=== PATIENT | female | born 1940 | race Caucasian/White ===

== ENCOUNTER 2016-08-23 11:48 | Observation (INO) | payer MEDICARE, OTHER ==
[~2016-08-23] VITALS: Ht 162.6 cm; Wt 58.7 kg
[2016-08-23] VITALS (7 sets, daily range): BP systolic 118–170; BP diastolic 73–94; PULSE 72–85; RESP 16–20; TEMP 97.2–97.8; O2SAT 91–97
[~2016-08-23 11:48] MED LIST: ATOR10 PO; BENA25CA2 PO; FISH1000 PO; METO50CR PO; RIVA20 PO; TAB-TAB PO; WAL-10TA2 PO
[2016-08-23] MEDS ORDERED: GLUCTAB6 (12:08)
[2016-08-23] MEDS ORDERED: ASPI1TAB69 PO (12:08)
[2016-08-23] MEDS ORDERED: CO-QCAP (12:08)
[2016-08-23] MEDS ORDERED: CALC1TAB87 PO (12:08)
[2016-08-23] MEDS ORDERED: PANTOPRAZOLE SODIUM 40 MG VIAL IVP ONE (12:15)
[2016-08-23] MEDS ORDERED: SODIUM CHLORIDE 0.9% FLUSH 10 ML FLUSH IVF PRN (12:15)
[2016-08-23] MEDS ORDERED: ALUMINUM/MAGNESIUM/SIMETH 30 ML CUP PO ONE (12:15)
[2016-08-23] MEDS ORDERED: LIDOCAINE VISCOUS 2% SOLN 15 ML UDC PO ONE (12:15)
[2016-08-23 12:18] LABS: AUTOMATED NEUTROPHIL # 3.7 TH/MM3 (1.8-7.7); BASOPHIL # 0.1 TH/MM3 (0-0.2); BASOPHIL % 1.1 % (0.0-2.0); EOSINOPHIL # 0.3 TH/MM3 (0-0.4); EOSINOPHIL % 5.2 % (0.0-4.0); HEMATOCRIT 46.2 % (35.0-46.0); HEMO FLAGS DIFF FINAL; LYMPH % 25.8 % (9.0-44.0); LYMPHOCYTE # 1.6 TH/MM3 (1.0-4.8); MEAN CELL VOLUME 88.9 FL (80.0-100.0); MEAN CORPUSCULAR HGB CONC 33.7 % (32.0-36.0); MONO % 7.8 % (0.0-8.0); NEUT % 60.1 % (16.0-70.0); PLATELET COUNT 268 TH/MM3 (150-450); RED CELL DISTRIBUTION WIDTH 12.1 % (11.6-17.2); WHITE BLOOD COUNT 6.2 TH/MM3 (4.0-11.0)
[2016-08-23 12:26] LABS: CHLORIDE 106 MEQ/L (98-107); POTASSIUM 3.9 MEQ/L (3.5-5.1); SODIUM (NA) 144 MEQ/L (136-145)
[2016-08-23 12:30] LABS: ANION GAP 9 MEQ/L (5-15); BICARBONATE 29.2 MEQ/L (21.0-32.0); BLOOD UREA NITROGEN 15 MG/DL (7-18); MAGNESIUM 2.2 MG/DL (1.5-2.5)
[2016-08-23 12:32] LABS: APTT (PATIENT) 26.1 SEC (24.3-30.1); INTERNATIONAL NORMALIZED RATIO 0.9 RATIO; PROTHROMBIN TIME - PATIENT 10.3 SEC (9.8-11.6)
[2016-08-23 12:33] LABS: ALT (GPT) 37 U/L (10-53); AST (GOT) 25 U/L (15-37); GLOMERULAR FILTRATION RATE 88 ML/MIN (>89)
[2016-08-23 12:35] LABS: TOTAL BILIRUBIN ADULT 0.5 MG/DL (0.2-1.0)
[2016-08-23 12:36] LABS: ALKALINE PHOSPHATASE 96 U/L (45-117); CREATINE KINASE 103 U/L (26-192)
--- NOTE | 2016-08-23 12:46 | RADHPO ---
EXAM DATE/TIME: 08/23/2016 12:23 [facility] COMPARISON: No previous studies available for comparison. INDICATIONS : Chest pain. MEDICAL HISTORY : Atrial fibrillation SURGICAL HISTORY : Ablation ENCOUNTER: Initial ACUITY: 1 day PAIN SCORE: 3/10 LOCATION: Bilateral chest FINDINGS: A single view of the chest demonstrates the lungs to be symmetrically aerated without evidence of mas s, infiltrate or effusion. The cardiomediastinal contours are unremarkable. Osseous structures are intact. CONCLUSION: No acute disease. Eric Guardado MD FACR on August 23, 2016 at 12:44 Board Certified Radiologist. This report was verified electronically.
[2016-08-23 12:48] LABS: CKMB 0.6 NG/ML (0.5-3.6)
--- NOTE | 2016-08-23 12:49 | PD ---
HPI Chief Complaint: Chest Pain Time Seen by Provider: 11:56 Travel History International Travel<30 days: No Contact w/Intl Traveler<30days: No Traveled to known affect area: No History of Present Illness HPI 75-year-old female with history of atrial fibrillation status post ablation here with complaint of chest pain. Patient states that she woke up at approximately 7 AM with complaint of bad reflux. Patient states that it feels as if she's having indigestion with a burning, achy pressure underneath the chest. She's had some associated burping. She took several antacids at home with improvement of her belching, but the pain has not abated. She states the pain is slightly worse with a deep breath but denies any shortness of breath. She denies any history of DVT or PE risk factors. No known history of cardiovascular disease, she's had previous provocative testing approximately 3 years ago that was negative. He notes mild, pressure, constant. PFSH Past Medical History Arthritis: Yes Atrial Fibrillation: Yes (ABLATION) Autoimmune Disease: No Blood Disorders: No Heart Rhythm Problems: Yes (A. FIB.) Cancer: No Cardiovascular Problems: Yes (HAD HOLLY & ETT = SLIGHT VALVE PROBLEM) High Cholesterol: Yes Chemotherapy: No Chest Pain: Yes Congestive Heart Failure: No Diabetes: No Diminished Hearing: No Endocrine: No Gastrointestinal Disorders: No Hypertension: Yes Immune Disorder: No Musculoskeletal: Yes (DISLODGED TENDON IN LEFT ARM) Neurologic: No Psychiatric: No Reproductive: No Respiratory: No Myocardial Infarction: No Radiation Therapy: No Tetanus Vaccination: < 5 Years ?: Not Past Surgical History Abdominal Surgery: Yes AICD: No Arteriovenous Shunt: No Cardiac Surgery: Yes (ABLATION FOR A-FIB) Cholecystectomy: Yes Gynecologic Surgery: Yes Hysterectomy: Yes Insulin Pump: No Joint Replacement: No Pacemaker: No Other Surgery: Yes Social History Alcohol Use: Yes (WINE 3 TIMES/WEEK WITH DINNER) Tobacco Use: No Substance Use: No Allergies-Medications (Allergen,Severity, Reaction): Coded Allergies: Demerol (Verified Allergy, Severe, VOMITING, 08/23/16) Codeine (Verified Allergy, Intermediate, ITCH, 08/23/16) Sulfa (Verified Allergy, Mild, ITCHING, 08/23/16) Reported Meds & Prescriptions Reported Meds & Active Scripts Active Reported Glucosamine Chondroitin (Zxeyrclclij-Witghiunjgw-Jnb C-) 1 Tab Tab DAILY Co-Q 10 [place]-3 Fish Oil (Coenzyme W44-Axch Oil-Vitamin) 1 Cap DAILY Calcium 600 with Vitamin D (Calcium Carbonate-Cholecalciferol) 600-400 mg-Unit Tab 1 Tab PO BID Aspirin 81 Mg Tabdr 81 Mg PO DAILY Lipitor (Atorvastatin Calcium) 10 Mg Tab 10 Mg PO DIRECTED THREE TIMES/WEEK Multivitamin (Multivitamins) 1 Tab Tab 1 Tab PO DAILY Loratadine 10 Mg Tab 10 Mg PO DAILY Review of Systems Except as stated in HPI: all other systems reviewed are Neg Physical Exam Narrative GENERAL: Well-appearing female in no acute distress SKIN: Focused skin assessment warm/dry. HEAD: Normocephalic. EYES: No scleral icterus. No injection or drainage. ENT: Mucous membranes pink and moist. NECK: Supple CARDIOVASCULAR: Regular rate and rhythm. No murmur appreciated. No reproducible tenderness to palpation of the chest wall. RESPIRATORY: No accessory muscle use. Clear to auscultation. Breath sounds equal bilaterally. GASTROINTESTINAL: Abdomen soft, non-tender, nondistended. MUSCULOSKELETAL: No obvious deformities. No edema. NEUROLOGICAL: Awake and alert. Normal speech. PSYCHIATRIC: Appropriate mood and affect; insight and judgment normal. Data Data Last Documented VS Vital Signs Date Time Temp Pulse Resp B/P Pulse Ox O2 Delivery O2 Flow Rate FiO2 08/23/16 12:53 76 16 150/89 96 Room Air 08/23/16 11:56 97.8 Orders Electrocardiogram (08/23/16 ) Ckmb (Isoenzyme) Profile (08/23/16 12:01) Complete Blood Count With Diff (08/23/16 12:01) Comprehensive Metabolic Panel (08/23/16 12:01) D-Dimer (08/23/16 12:01) Magnesium (Mg) (08/23/16 12:01) Prothrombin Time / Inr (Pt) (08/23/16 12:01) Act Partial Throm Time (Ptt) (08/23/16 12:01) Troponin I (08/23/16 12:01) Lipase (08/23/16 12:01) Chest, Single Ap (08/23/16 12:01) Ecg Monitoring (08/23/16 12:01) Iv Access Insert/Monitor (08/23/16 12:01) Oximetry (08/23/16 12:01) Sodium Chloride 0.9% Flush (Ns Flush) (08/23/16 12:15) Pantoprazole Inj (Protonix Inj) (08/23/16 12:15) Al-Mag Hy-Si 40-40-4 Mg/Ml Liq (Mag-Al P (08/23/16 12:15) Lidocaine 2% Viscous (Xylocaine 2% Visco (08/23/16 12:15) CKMB (08/23/16 12:05) CKMB% (08/23/16 12:05) Labs Laboratory Tests Test 08/23/16 12:05 White Blood Count 6.2 TH/MM3 Red Blood Count 5.20 MIL/MM3 Hemoglobin 15.6 GM/DL Hematocrit 46.2 % Mean Corpuscular Volume 88.9 FL Mean Corpuscular Hemoglobin 30.0 PG Mean Corpuscular Hemoglobin 33.7 % Concent Red Cell Distribution Width 12.1 % Platelet Count 268 TH/MM3 Mean Platelet Volume 8.6 FL Neutrophils (%) (Auto) 60.1 % Lymphocytes (%) (Auto) 25.8 % Monocytes (%) (Auto) 7.8 % Eosinophils (%) (Auto) 5.2 % Basophils (%) (Auto) 1.1 % Neutrophils # (Auto) 3.7 TH/MM3 Lymphocytes # (Auto) 1.6 TH/MM3 Monocytes # (Auto) 0.5 TH/MM3 Eosinophils # (Auto) 0.3 TH/MM3 Basophils # (Auto) 0.1 TH/MM3 CBC Comment DIFF FINAL Differential Comment Prothrombin Time 10.3 SEC Prothromb Time International 0.9 RATIO Ratio Activated Partial 26.1 SEC Thromboplast Time D-Dimer Quantitative (PE/DVT) 0.39 MG/L FEU Sodium Level 144 MEQ/L Potassium Level 3.9 MEQ/L Chloride Level 106 MEQ/L Carbon Dioxide Level 29.2 MEQ/L Anion Gap 9 MEQ/L Blood Urea Nitrogen 15 MG/DL Creatinine 0.66 MG/DL Estimat Glomerular Filtration 88 ML/MIN Rate Random Glucose 144 MG/DL Calcium Level 9.7 MG/DL Magnesium Level 2.2 MG/DL Total Bilirubin 0.5 MG/DL Aspartate Amino Transf 25 U/L (AST/SGOT) Alanine Aminotransferase 37 U/L (ALT/SGPT) Alkaline Phosphatase 96 U/L Total Creatine Kinase 103 U/L Creatine Kinase MB 0.6 NG/ML Troponin I LESS THAN 0.02 NG/ML Total Protein 7.5 GM/DL Albumin 3.8 GM/DL Lipase 209 U/L MDM Medical Decision Making Medical Screen Exam Complete: Yes Emergency Medical Condition: Yes Medical Record Reviewed: Yes Differential Diagnosis 75-year-old female with history of A. fib status post ablation here with complaint of indigestion and chest pain since 7 AM. Differential includes ACS, atypical chest pain, reflux, gastritis, pancreatitis, peptic ulcer disease, home in her embolism and less likely dissection. Narrative Course Patient placed on monitor, IV established and blood obtained. A twelve-lead EKG shows sinus rhythm without notable ST or T-wave abnormalities and normal intervals. Patient given IV PPI and GI cocktail. She takes aspirin daily and has taken this prior to arrival today. Portal chest x-ray was obtained that by my read shows no acute abnormalities. CBC, CMP, lipase, magnesium, CK-MB, troponin, coags, d-dimer were obtained and unremarkable. Patient to get some improvement with her above therapy. Given her age, my recommendation was for serial enzymes and provocative testing. Patient was agreeable with this. Diagnosis Primary Impression: Chest pain Qualified Code: R07.2 - Precordial pain Admitting Information Admitting Physician Requests: Marii Barros MD Aug 23, 2016 12:49
[2016-08-23] MEDS ORDERED: ACETAMINOPHEN 500 MG CPLT PO PRN (13:45)
[2016-08-23] MEDS ORDERED: ONDANSETRON HCL 4 MG/2 ML VIAL IV PRN (13:45)
[2016-08-23] MEDS ORDERED: SODIUM CHLORIDE 0.9% FLUSH 10 ML FLUSH IV FLUSH PRN (13:45)
[2016-08-23] MEDS ORDERED: TEMAZEPAM 15 MG CAP PO PRN (13:45)
[2016-08-23] MEDS ORDERED: NITROGLYCERIN 0.4 MG SL 25 TABS/BTL SL PRN (13:45)
[2016-08-23 16:02] LABS: CREATINE KINASE 95 U/L (26-192)
--- NOTE | 2016-08-23 16:29 | HHI.HP ---
[facility] Madiha Leger MD Admission Diagnosis chest pain Diagnoses: (1) Chest pain Diagnosis: Principal (2) Hyperlipidemia Diagnosis: Secondary (3) History of atrial fibrillation Diagnosis: Secondary Chief Complaint: Chest discomfort Travel History International Travel<30 Days: No Contact w/Intl Traveler <30 Da: No Traveled to Known Affected Are: No History of Present Illness 75-year-old female with known history of hypokalemia, history of atrial fibrillation status post ablation who presented to hospital because of chest discomfort. Patient states that she woke up at 7 AM this morning she is experiencing chest discomfort, abdominal discomfort underneath her left breast, left ribs and radiating into her left arm. She states that it was a pain 7/10 on a pain scale and remained persistent up until 11:30. At that time she called her blackjack pit boss Dr. Leger who notified her to go to the hospital for evaluation. Patient night any nausea, vomiting, diaphoresis, shortness breath, dyspnea, lightheadedness, dizziness. Patient is followed by blackjack pit boss on a regular basis. Last stress test that she had performed was a myocardial perfusion study 3 years ago. She does have history of hyperlipidemia in which Dr. Leger's weaning her off of the statin at this time. At the time evaluating the patient she is still experiencing discomfort. She did get a GI cocktail emergency department without any relief. Is recommended patient be observed and chest pain center for further recommendations and management. Review of Systems Constitutional: DENIES: Diaphoretic episodes, Fatigue, Fever, Weight gain, Weight loss, Chills, Dizziness, Change in appetite, Night Sweats Eyes: DENIES: Blurred vision, Diplopia, Eye inflammation, Eye pain, Vision loss , Double Vision Ears, nose, mouth, throat: DENIES: Vertigo, Nasal discharge, Throat pain, Ear Pain, Running Nose, Sinus Pain Respiratory: DENIES: Apneas, Cough, Snoring, Wheezing, Hemoptysis, Sputum production, Shortness of breath Cardiovascular: COMPLAINS OF: Chest pain, DENIES: Palpitations, Syncope, Dyspnea on Exertion, Lower Extremity Edema, Orthopnea Gastrointestinal: DENIES: Abdominal pain, Black stools, Bloody stools, Constipation, Diarrhea, Nausea, Vomiting, Difficulty Swallowing, Anorexia Neurologic: DENIES: Abnormal gait, Headache, Localized weakness, Paresthesias, Seizures, Speech Problems, Tremor, Poor Balance Psychiatric: DENIES: Anxiety, Confusion, Mood changes, Depression Past Family Social History Past Medical History History of atrial fibrillation status post ablation Hyperlipidemia Past Surgical History Atrial fibrillation ablation Cholecystectomy Hysterectomy Reported Medications Reported Meds & Active Scripts Active Reported Glucosamine Chondroitin (Ffbibyycmqa-Itjgxqfvtmu-Jnm C-) 1 Tab Tab DAILY Co-Q 10 [place]-3 Fish Oil (Coenzyme Q16-Xydn Oil-Vitamin) 1 Cap DAILY Calcium 600 with Vitamin D (Calcium Carbonate-Cholecalciferol) 600-400 mg-Unit Tab 1 Tab PO BID Aspirin 81 Mg Tabdr 81 Mg PO DAILY Lipitor (Atorvastatin Calcium) 10 Mg Tab 10 Mg PO DIRECTED THREE TIMES/WEEK Multivitamin (Multivitamins) 1 Tab Tab 1 Tab PO DAILY Loratadine 10 Mg Tab 10 Mg PO DAILY Allergies: Coded Allergies: Demerol (Verified Allergy, Severe, VOMITING, 08/23/16) Codeine (Verified Allergy, Intermediate, ITCH, 08/23/16) Sulfa (Verified Allergy, Mild, ITCHING, 08/23/16) Family History Reviewed is significant for mother having elephantiasis, chronic tobacco use, heart disease Social History Patient denies any tobacco, drinks alcohol 3 times weekly. Denies any illicit drugs Physical Exam Vital Signs Vital Signs Date Time Temp Pulse Resp B/P Pulse Ox O2 Delivery O2 Flow Rate FiO2 08/23/16 16:18 97 21 08/23/16 12:53 76 16 150/89 96 Room Air 08/23/16 12:04 16 97 Room Air 08/23/16 12:00 18 97 Room Air 08/23/16 11:56 97.8 85 18 170/94 97 Physical Exam GENERAL: Well-developed, well-nourished, in no acute distress. alert and orientated HEENT: Head is normocephalic without any lesions or masses noted. Facial features are symmetric. Eyes: Pupils equal round reactive to light. Extraocular muscles are intact. Conjunctivae were clear. Oropharyngeal: Pharynx without any erythema edema. Tongue is midline without deviation. Buccal mucosa is moist without any masses or lesions NECK: Supple without any masses. Trachea midline no deviation. No JVD, no bruits are appreciated CARDIAC: Regular rhythm, regular rate. S1/S2 are heard. No murmurs gallops or rubs. LUNGS: Clear to auscultation bilaterally. No wheeze, rhonchi or rales. No use of accessory muscles on inspiration or expiration. ABDOMEN: Soft, nontender. Nondistended. Bowel sounds heard in all 4 quadrants. No organomegaly or masses. Negative rebound, negative guarding EXTREMITIES: No edema, pulses are equal bilaterally. No cyanosis or clubbing NEUROLOGY: Mood and affect appear appropriate. Cranial nerves II through XII grossly intact. Muscle strength 5/5 in upper and lower extremities bilaterally. Deep tendon reflexes are 2+ in upper and lower extremities bilaterally. Laboratory Laboratory Tests Test 08/23/16 08/23/16 12:05 15:15 White Blood Count 6.2 Red Blood Count 5.20 Hemoglobin 15.6 Hematocrit 46.2 Mean Corpuscular Volume 88.9 Mean Corpuscular Hemoglobin 30.0 Mean Corpuscular Hemoglobin 33.7 Concent Red Cell Distribution Width 12.1 Platelet Count 268 Mean Platelet Volume 8.6 Neutrophils (%) (Auto) 60.1 Lymphocytes (%) (Auto) 25.8 Monocytes (%) (Auto) 7.8 Eosinophils (%) (Auto) 5.2 Basophils (%) (Auto) 1.1 Neutrophils # (Auto) 3.7 Lymphocytes # (Auto) 1.6 Monocytes # (Auto) 0.5 Eosinophils # (Auto) 0.3 Basophils # (Auto) 0.1 CBC Comment DIFF FINAL Differential Comment Prothrombin Time 10.3 Prothromb Time International 0.9 Ratio Activated Partial 26.1 Thromboplast Time D-Dimer Quantitative (PE/DVT) 0.39 Sodium Level 144 Potassium Level 3.9 Chloride Level 106 Carbon Dioxide Level 29.2 Anion Gap 9 Blood Urea Nitrogen 15 Creatinine 0.66 Estimat Glomerular Filtration 88 Rate Random Glucose 144 Calcium Level 9.7 Magnesium Level 2.2 Total Bilirubin 0.5 Aspartate Amino Transf 25 (AST/SGOT) Alanine Aminotransferase 37 (ALT/SGPT) Alkaline Phosphatase 96 Total Creatine Kinase 103 95 Creatine Kinase MB 0.6 Troponin I LESS THAN 0.02 LESS THAN 0.02 Total Protein 7.5 Albumin 3.8 Lipase 209 Result Diagram: 08/23/16 1205 08/23/16 1205 Imaging Last Impressions Chest X-Ray 08/23/16 1201 Signed Impressions: Service Date/Time: Tuesday, August 23, 2016 12:23 - CONCLUSION: No acute disease. Eric Guardado MD FACR Assessment and Plan Assessment and Plan Chest pain, atypical: Patient with increased risk factors to include age, family history of heart disease, hyperlipidemia. We'll continue to trend cardiac enzymes rule out any acute coronary event. Continue serial EKGs. Will pursue nuclear stress test in the morning to rule out any underlying ischemia. Patient continued on aspirin. Dr. Adkins discussed with Dr. Leger who agrees with stress test tomorrow morning. Hyperlipidemia: Continue statin DVT prevention: Sequential compression devices Written by Sha Kerns PA-C, acting as scribe for Dr. Adkins on 08/23/16 at 1630. The documentation accurately reflects the work and decisions performed face-to- face by Dr. Adkins on 08/23/16 at 1630. Problem Qualifiers (1) Chest pain: Qualified Code: R07.2 - Precordial pain Sha Kerns Aug 23, 2016 16:28 Sabrina Adkins MD Aug 23, 2016 18:08
[2016-08-23 18:44] LABS: CREATINE KINASE 85 U/L (26-192)
[2016-08-23] MEDS: SODIUM CHLORIDE 0.9% FLUSH 10 ML FLUSH IV FLUSH SCH (20:41)
[2016-08-24 00:18] VITALS: BP 107/72; PULSE 72; RESP 16; TEMP 97.2; O2SAT 92
[2016-08-24 04:18] VITALS: BP 128/84; PULSE 73; RESP 16; TEMP 96.7; O2SAT 95
[2016-08-24 08:00] VITALS: BP 110/74; PULSE 83; RESP 18; TEMP 97.1; O2SAT 97
[2016-08-24] MEDS: SODIUM CHLORIDE 0.9% FLUSH 10 ML FLUSH IV FLUSH SCH (09:00)
[2016-08-24] MEDS ORDERED: ASPIRIN EC 81 MG TABEC PO SCH (09:00)
[2016-08-24] MEDS ORDERED: REGADENOSON INJ 0.4 MG/5 ML SYR IV ONE (10:00)
--- NOTE | 2016-08-24 10:19 | HHI.PR ---
Subjective Remarks Patient seen and examined today with Dr. Adkins. Patient states that she did have some mild discomfort in her left chest early this morning. Objective Vitals Vital Signs Date Time Temp Pulse Resp B/P Pulse Ox O2 Delivery O2 Flow Rate FiO2 08/24/16 08:00 97.1 83 18 110/74 97 08/24/16 04:18 96.7 73 16 128/84 95 08/24/16 00:18 97.2 72 16 107/72 92 08/23/16 20:24 97.3 76 16 118/79 91 08/23/16 20:00 80 08/23/16 16:18 97 21 08/23/16 16:00 97.2 72 20 134/73 94 08/23/16 12:53 76 16 150/89 96 Room Air 08/23/16 12:04 16 97 Room Air 08/23/16 12:00 18 97 Room Air 08/23/16 11:56 97.8 85 18 170/94 97 I/O 08/23/16 08/23/16 08/23/16 08/24/16 08/24/16 08/24/16 07:00 15:00 23:00 07:00 15:00 23:00 Intake Total 240 ml Balance 240 ml Intake Oral 240 ml # Voids 1 1 1 Result Diagram: 08/23/16 1205 08/23/16 1205 Objective Remarks GENERAL: Well-developed, well-nourished, in no acute distress. alert and orientated HEENT: Head is normocephalic without any lesions or masses noted. Facial features are symmetric. Eyes: Extraocular muscles are intact. Conjunctivae were clear. NECK: Supple without any masses. Trachea midline no deviation. CARDIAC: Regular rhythm, regular rate. S1/S2 are heard. No murmurs gallops or rubs. LUNGS: Clear to auscultation bilaterally. No wheeze, rhonchi or rales. No use of accessory muscles on inspiration or expiration. ABDOMEN: Soft, nontender. Nondistended. Bowel sounds heard in all 4 quadrants. No organomegaly or masses. Negative rebound, negative guarding EXTREMITIES: No edema, pulses are equal bilaterally. No cyanosis or clubbing NEUROLOGY: Mood and affect appear appropriate. Cranial nerves II through XII grossly intact moving all extremities, speech is clear Urinary Catheter: No Vascular Central Line Catheter: No A/P Assessment and Plan Chest pain, atypical: Patient with increased risk factors to include age, family history of heart disease, hyperlipidemia. Patient having ruled out for any acute coronary event with serial cardiac enzymes which are negative, serial EKGs reviewed by myself did not show any changes. Nuclear stress test was performed which did not indicate any underlying ischemia. Patient continued on aspirin. Dr. Adkins discussed with Dr. Leger Hyperlipidemia: Continue statin DVT prevention: Sequential compression devices Written by Sha Kerns PA-C, acting as scribe for Dr. Adkins on 08/24/16 at 1240. The documentation accurately reflects the work and decisions performed face-to- face by Dr. Adkins on 08/24/16 at 1240. All or portions of this note were transcribed by scribe Sha Kerns. I, Dr. Sabrina Adkins personally performed the history, physical exam, and medical decision making; and confirmed the accuracy of the information in the transcribed note. Discharge Planning Discharge home in stable condition Activity: Ad nataliya. Diet: Healthy heart diet Medications per medication reconciliation Follow-up primary medical doctor one week Sha Kerns Aug 24, 2016 10:19 Sabrina Adkins MD Aug 24, 2016 18:27
--- NOTE | 2016-08-24 11:43 | RADHPO ---
EXAM DATE/TIME: 08/24/2016 10:20 [facility] COMPARISON: No previous studies available for comparison. INDICATIONS : Substernal chest pain radiating to left arm. Angina. DOSE: 25.4 mCi Tc99m Myoview at stress. 8.5 mCi Tc99m Myoview at rest. 0.4 mg Lexiscan STRESS SYMPTOMS: Throat pressure and headache. EJECTION FRACTION: > 70% MEDICAL HISTORY : Hypercholesterolemia. Atrial fibrillation. SURGICAL HISTORY : Cholecystectomy. Hysterectomy. Cardiac ablation. ENCOUNTER: Initial ACUITY: 1 day PAIN SCALE: 7/10 LOCATION: Substernal chest TECHNIQUE: The patient underwent pharmacologic stress with infusion of prescribed dose. Continuous ECG tracing was monitored during stress. Gated SPECT imaging was performed after stress and conventional SPECT i maging was performed at rest. The examination was performed on a SPECT/CT scanner, both attenuation and non-corrected datasets were reviewed. FINDINGS: DISTRIBUTION: The maximum perfused segment at stress is in the lateral wall PERFUSION STUDY: The pattern of perfusion at stress is within normal limits. GATED STUDY: There is intact wall motion and thickening without hypokinetic or dyskinetic segments. CONCLUSION: Negative for stress induced ischemia. RISK CATEGORY: Low (<1% Annual Mortality Rate) Eric Guardado MD FACR on August 24, 2016 at 11:35 Board Certified Radiologist. This report was verified electronically.
--- NOTE | 2016-08-24 11:55 | HHI.DCPOC ---
Discharge Care Plan Diagnosis: (1) Chest pain Goals to Promote Your Health * To prevent worsening of your condition and complications * To maintain your health at the optimal level Directions to Meet Your Goals Take your medications as prescribed Follow your dietary instruction Follow activity as directed Keep your appointments as scheduled Take your immunizations and boosters as scheduled If your symptoms worsen call your PCP, if no PCP go to Urgent Care Center or Emergency Room Smoking is Dangerous to Your Health. Avoid second hand smoke Call the 24-hour hour crisis hotline for domestic abuse at Sha Kerns Aug 24, 2016 11:55
[2016-08-24 12:00] VITALS: BP 113/78; PULSE 71; RESP 18; TEMP 97.2; O2SAT 95
--- NOTE | 2016-08-24 18:21 | TR ---
Date Performed: 08/24/2016 Time Performed: 10:20:11 DOCTOR: Amari Wilcox DRUG LIST: CLINICAL HISTORY: CHEST PAIN REASON FOR TEST: Chest pain REASON FOR ENDING: OBSERVATION: CONCLUSION: Lexiscan stress test was performed under standard four minute protocol. Radionuclide was injected one minute prior to ending the test. Developed pressure in the throat and headache, sys tolic blood pressure became slightly elevated. Frequent PVCs were noted. No electrocardiographic abno rmalities were present to suggest ischemia. Recovery was quick and uneventful with resolution of symp toms, systolic blood pressure returned to normal. Nuclear imaging and interpretation are pending. COMMENTS:
--- NOTE | 2016-08-25 13:19 | EKG ---
Date Performed: 08/23/2016 Time Performed: 11:54:02 PTAGE: 75 years EKG: Sinus rhythm Low QRS voltages in precordial leads Borderline ECG PREVIOUS TRACING : 10/01/2012 15.36 DOCTOR: Amari Wilcox Interpretating Date/Time 08/25/2016 13:18:13
--- NOTE | 2016-08-25 13:21 | EKG ---
Date Performed: 08/23/2016 Time Performed: 14:54:16 PTAGE: 75 years EKG: Sinus rhythm Low QRS voltage Borderline ECG PREVIOUS TRACING : 08/23/2016 11.54 DOCTOR: Amari Wilcox Interpretating Date/Time 08/25/2016 13:21:13
--- NOTE | 2016-08-25 13:34 | EKG ---
Date Performed: 08/23/2016 Time Performed: 17:47:24 PTAGE: 75 years EKG: Sinus rhythm . Low QRS voltage. Abnormal ECG PREVIOUS TRACING : 08/23/2016 14.54 DOCTOR: Amari Wilcox Interpretating Date/Time 08/25/2016 13:32:01
== END 2016-08-24 13:54 | disposition home or self-care (01) ==
LOC: PHED 11:48 → PHEDA 13:31 → PH3B 15:45
PROVIDERS: ADMIT Family Medicine; ATTEND Family Medicine
DX: R07.89 Other chest pain (principal); E78.00 Pure hypercholesterolemia, unspecified; I10 Essential (primary) hypertension; E78.5 Hyperlipidemia, unspecified; M19.90 Unspecified osteoarthritis, unspecified site; Z79.82 Long term (current) use of aspirin; Z88.5 Allergy status to narcotic agent; Z88.2 Allergy status to sulfonamides; Z82.49 Family history of ischemic heart disease and other diseases of the circulatory system
CPT/HCPCS: 71010; 78452; 80053; 82550; 82552; 83690; 83735; 84484; 85025; 85379; 85610; 85730; 93005; 93017; 96374; 99285; A9502; C9113; G0378; J2785